=== PATIENT | male | born 1975 | race Two or more races ===

== ENCOUNTER 2020-01-23 15:12 | Emergency (ER) | payer SELFPAY ==
[~2020-01-23] VITALS: Ht 172.7 cm; Wt 101.6 kg
[2020-01-23] MEDS ORDERED: SODIUM CHLORIDE FLUSH 10ML SYR IVF ONE (16:00)
--- NOTE | 2020-01-23 16:02 | NUR ---
Blood drawn by phlembotomist, pt walked to Xray in [facility], to be grought to ED room 17 when Xray complete
[2020-01-23 16:10] LABS: BASOPHILS # (AUTO) 0.03 x10^3/uL (0-0.1); BASOPHILS % (AUTO) 1 % (0-1); EOSINOPHILS # (AUTO) 0.03 x10^3/uL (0-0.4); EOSINOPHILS % (AUTO) 1 % (1-7); LYMPHOCYTES # (AUTO) 1.72 x10^3/uL (1-3.4); LYMPHOCYTES % (AUTO) 27 % (22-44); MD NO; MEAN CORPUSCULAR HEMOGLOBIN 29.2 pg (27.5-34.5); MEAN CORPUSCULAR HGB CONC 33.1 g/dL (33.2-36.2); MEAN CORPUSCULAR VOLUME 88.2 fL (81-97); MEAN PLATELET VOLUME 7.8 fL (7.4-10.4); MONOCYTES # (AUTO) 0.88 x10^3/uL (0.2-0.8); MONOCYTES % (AUTO) 14 % (2-9); NEUTROPHILS # (AUTO) 3.65 x10^3/uL (1.8-6.8); NEUTROPHILS % (AUTO) 58 % (42-75); PLATELET COUNT 244 x10^3/uL (130-400); RED BLOOD COUNT 5.16 x10^6/uL (4.38-5.82); RED CELL DISTRIBUTION WIDTH 14.6 % (9.4-14.8)
[2020-01-23 16:17] LABS: RAPID INFLUENZA A Negative (Negative); RAPID INFLUENZA B Negative (Negative)
--- NOTE | 2020-01-23 16:20 | NUR ---
late entry: Dr Cerna at bedside assessing and discussing plan of care with patient.
[2020-01-23 16:22] LABS: ALANINE AMINOTRANSFERASE 214 U/L (12-78); ALBUMIN 3.4 g/dL (3.4-5.0); ANION GAP 7 mmol/L (5-15); CALCIUM 8.3 mg/dL (8.5-10.1); CHLORIDE 108 mmol/L (98-107)
[2020-01-23 16:24] LABS: ALKALINE PHOSPHATASE 102 U/L (45-117); BILIRUBIN,TOTAL 0.2 mg/dL (0.2-1.0); TOTAL PROTEIN 7.7 g/dL (6.4-8.2)
--- NOTE | 2020-01-23 16:32 | NUR ---
Pt placed in room with gown, given blankets, and call light within reach. Friend at bedside. NAD, denies additional needs at this time. PHILIP
[2020-01-23 17:26] VITALS: BP 151/102
== END 2020-01-23 17:30 | disposition home or self-care (01) ==
LOC: ED 17:24
DX: J00 Acute nasopharyngitis [common cold] (principal); I10 Essential (primary) hypertension; M79.642 Pain in left hand; R07.89 Other chest pain; R51 Headache
CPT/HCPCS: 36415; 71046; 80053; 83605; 84145; 85025; 87040; 87081; 87400; 87880; 99284